=== PATIENT | female | born 1990 | race Caucasian/White ===

== ENCOUNTER 2024-11-03 10:54 | Emergency (ER) | payer OTHER, SELFPAY ==
[2024-11-03 11:11] VITALS: BP 162/103
[2024-11-03 11:31] LABS: % Basophils 0.8 % (0-2); % Eosinophils 2.8 % (0-6); % Immature Granulocytes 0.4 % (0-0.5); % Monocytes 7.9 % (1.7-9.3); % Neutrophils 68.1 % (42.2-75.2); Absolute Basophils 0.1 10^3/uL (0-0.2); Absolute Eosinophils 0.3 10^3/uL (0-0.7); Absolute Lymphocytes 1.8 10^3/uL (1.2-3.4); Absolute Monocytes 0.7 10^3/uL (0.1-0.6); Absolute Neutrophils 6.2 10^3/uL (1.4-6.5); Hematocrit 42.4 % (37.0-47.0); Hemoglobin 15.1 g/dL (12.0-16.0); Mean Corp Hgb Conc. 35.6 g/dL (33.0-37.0); Mean Corpuscular Hgb 30.8 pg (27.0-31.0); Mean Corpuscular Volume 86.5 fL (81.0-99.0); Mean Platelet Volume 11.1 fL (7.4-10.4); Nucleated Red Blood Cells % 0 %; Platelet Count 208 10^3/uL (130-400); Red Cell Dist. Width 13.4 % (11.5-14.5)
[2024-11-03 11:44] LABS: AST (SGOT) 352 U/L (14-36); Albumin 4.9 g/dl (3.5-5.0); Alkaline Phosphatase 90 U/L (38-126); Blood Urea Nitrogen 13 mg/dl (7-17); Calcium 9.8 mg/dl (8.4-10.2); Carbon Dioxide 27 mmol/L (22-30); Chloride 99 mmol/L (98-107); Glucose 147 mg/dl (70-99); Potassium 4.1 mmol/L (3.5-5.1); Sodium 138 mmol/L (135-145); Total Bilirubin 1.1 mg/dl (0.2-1.3); Total Protein 7.8 g/dl (6.3-8.2); eGFR > 60.00
[2024-11-03 11:48] LABS: HCG, Serum Qualitative Screen Negative
[2024-11-03 11:56] LABS: ALT (SGPT) 398 U/L (0-35)
--- NOTE | 2024-11-03 12:43 | EDRN ---
Pt states she arrives for pain on LLQ that started on Sunday. Initially pt though she was constipated and had diarrhea all day. Pt awoke this am still in pain so came ER. Pain fluctuates, increasing and decreasing, pain now a 2/10. This am 5-03/24
and yesterday 7-05/24. No nausea, no urinary symptoms. Pt has increased pain w/ coughing or deep breath.
[2024-11-03 12:46] VITALS: BMI 46.6
[2024-11-03 12:51] VITALS: BP 156/101
[2024-11-03 13:00] VITALS: BP 156/91
--- NOTE | 2024-11-03 13:15 | ED.GENMED ---
Addendum entered and electronically signed by Elin Colon PA-C 11/05/24 07:18:
34-year-old female seen here on 1�22 for an obstructing left ureteral stone initially urine looks contaminated but her culture grew out E. coli. I spoke with the patient this morning she says she was in a lot of pain last night. She is having no
fever but I instructed her to come into the emergency department which she was planning on doing anyway. Patient may need to have procedure to remove the stone due to this infection she was told not to eat or drink.
Original Note:
History of Present Illness
General
Chief Complaint: Abdominal Symptoms
Source: patient
Time Seen by Provider: 11/03/24 13:00
History of Present Illness
History of Present Illness:
34-year-old female presents complaining of 2 to 3 days worth of intermittent left mid abdominal pain. She did have some loose stool yesterday but she recently increased her dose of metformin. There has been no nausea or vomiting. No fever no
urinary symptoms. She denies any blood in the stool. No prior abdominal surgical history. She does have a history of elevated liver functions and her blood work which she has had an ultrasound for. The pain does seem to come and go. Currently
at the time my exam is mild in nature. Occasionally radiates to the flank. Last menstrual cycle last week.
Phy Exam
Physical Exam
Physical Exam:
General: Well-appearing female no acute respiratory distress
HEENT: Normocephalic atraumatic
Heart: Regular rate and rhythm no murmurs
Lungs: Clear no wheeze or rale
Abdomen is soft tender to the left mid abdomen no guarding or rebound normal bowel sounds nondistended no right upper quadrant tenderness no Arauz sign
Extremities: No cyanosis or edema
Skin: Warm no rash
Course
Orders/Labs/Results
Orders:
Orders
11/03/24 11:14
Test Result ONCE
11/03/24 11:17
Complete Blood Count/With Diff Urgent
Comprehensive Metabolic Panel Urgent
HCG, Serum Qualitative Screen Urgent
11/03/24 13:15
CT Abd/pelvis W Iv Cont Urgent
Comment:
Reason For Exam: left mid abdominal pain
11/03/24 13:53
Urinalysis Reflex To Culture Urgent
Date Specimen was Collected: 11/03/24
Time Specimen was Collected: 13:52
Urine Microscopic Reflex Cult Urgent
Urine Culture Urgent
JEAN CARLOS Source: U
Specimen Description:
Obtained by: Random
Date Specimen was Collected: 11/03/24
Time Specimen was Collected: 13:52
Abnormal Lab Results
11/03/24 11/03/24
11:17 13:53
MPV 11.1 H fL
(7.4-10.4)
Absolute Monos (auto) 0.7 H 10^3/uL
(0.1-0.6)
Lymphocytes % 20.0 L %
(20.5-51.1)
Glucose 147 H mg/dl
(70-99)
AST 352 H U/L
(14-36)
ALT 398 H U/L
(0-35)
Ur Occult Blood Reflex 1+ A
(Negative)
Leukocyte Esterase Rfl 1+ A
(Negative)
Urine RBC 7-10 A /HPF
(0-2)
Urine WBC (Reflex) 16-20 A /HPF
(0-5)
Urine Bacteria (Reflex) Many A
(Negative)
11/03/24 11:17
11/03/24 11:17
Vital Signs
Initial and Last Documented VS:
Initial Vital Signs
Temp Pulse Resp BP Pulse Ox
97.9 F 98 16 162/103 97
11/03/24 11:11 11/03/24 11:11 11/03/24 11:11 11/03/24 11:11 11/03/24 11:11
Last Documented Vital Signs
Temp Pulse Resp BP Pulse Ox
97.9 F 92 16 120/70 95
11/03/24 11:11 11/03/24 15:01 11/03/24 15:01 11/03/24 15:01 11/03/24 15:01
MDM/Problems Addressed
Differential Diagnosis Includes:
Left mid abdominal pain. Differential includes but not limited to diverticulitis versus renal colic the patient versus musculoskeletal discomfort. Pain seems to be higher than I would expect for ovarian related pathology. Last menstrual cycle 1
week ago
Check urine for UTI or hematuria. CT abdomen with IV contrast pending.
Of note patient's LFTs are elevated in the blood work. Clinically she has no tenderness to the right upper quadrant. She has had an ultrasound of her abdomen which demonstrated beginnings of fatty liver.
*Critical Care Note
Total Time (30-74mins, 75-104mins- exclusive of procedures): Not Applicable
Update Note
Update Note:
CT demonstrates 5 mm transverse by 8 mm longitudinal ureteral stone in the proximal left ureter. Urinalysis likely contaminated specimen. Patient reevaluated multiple times appears comfortable no vomiting no fever white count normal. Discussed
findings with urologist. We agreed on close follow-up and potential elect procedure in the near future. Return precautions were given.
ED Attending Note
-
Portions of this chart may have been created with voice recognition software.� Occasional wrong word or��sound alike� substitutions may have occurred due to the inherent limitations of voice recognition software.
Discharge Plan
Departure
Patient Disposition: Home (Routine Discharge)
Date of Disposition: 11/03/24
Time of Disposition: 15:58
Patient with high blood pressure during this ER visit?: No
Discharge Problem:
Kidney stone
Instructions: Kidney stones in adults - ED discharge instructions
Prescriptions:
New
tamsulosin [Flomax] 0.4 mg capsule
0.4 mg PO DAILY Qty: 10 0RF
ondansetron 4 mg tablet,disintegrating
4 mg PO Q8H PRN (Reason: nausea and vomiting) Qty: 10 0RF
Referrals:
Thomas Rendon MD [Family Provider] -
Emanuel Trujillo MD [Active] -
Activity Restrictions/Additional Instructions:
Drink plenty of fluids. Please return here for increasing pain vomiting fever or other concerning finding. Otherwise follow-up with urologist for next available appointment to discuss further treatment options
Interventions
Interventions:
*Risk Screen - Suicide Last Done: 11/03/24 11:13
*General Assessment Last Done: 11/03/24 12:47
*Neglect/Abuse Screening Last Done: 11/03/24 11:13
ED- Fall Risk Assessment Last Done: 11/03/24 12:48
*ED COVID-19 Vaccine History Last Done: 11/03/24 12:47
XP-Vrxjxc-Ekauakjaxe Assessment Last Done: 11/03/24 12:51
Discharge Date and Time
Print Language: DANISH
[2024-11-03 14:00] VITALS: BP 152/92
[2024-11-03 14:03] LABS: Urine Albumin Trace (Neg - Trace); Urine Bilirubin Negative (Negative); Urine Character Clear (Clear); Urine Color Yellow; Urine Glucose Negative (Negative); Urine Ketone Negative (Negative); Urine Leukocyte 1+ (Negative); Urine Nitrite Negative (Negative); Urine Occult Blood 1+ (Negative); Urine Urobilinogen Negative (Neg - 1+)
[2024-11-03 14:11] LABS: Urine Bacteria Many (Negative); Urine Squamous Cell 26-30 /LPF (Few); Urine White Cell 16-20 /HPF (0-5)
[2024-11-03 15:01] VITALS: BP 120/70
[2024-11-03 16:15] VITALS: BP 146/103
== END 2024-11-03 16:20 | disposition home or self-care (01) ==
LOC: EMR 10:54
PROVIDERS: Physician Assistant; Student in an Organized Health Care Education/Training Program; EMERGENCY PHYSICIAN Emergency Medicine; FAMILY PHYSICIAN Family Medicine
DX: N20.2 Calculus of kidney with calculus of ureter (principal)
CPT/HCPCS: 99284; 74177; 80053; 81003; 81015; 84703; 85025; 87077; 87086; 87186; Q9967

== ENCOUNTER 2024-11-05 13:13 | Inpatient (IN) | payer OTHER, SELFPAY ==
[2024-11-05] VITALS (11 sets, daily range): BP systolic 134–183; BP diastolic 72–111
--- NOTE | 2024-11-05 10:36 | ED.GENMED ---
History of Present Illness
General
Chief Complaint: Urinary Symptoms
Source: patient
Exam Limitations: none
Time Seen by Provider: 11/05/24 10:26
History of Present Illness
History of Present Illness:
34-year-old female presents for reevaluation. She was here several days ago diagnosed with a 5 x 8 mm proximal left-sided ureteral stone. Urine culture grew back E. coli. She received a call from us today to return here. She also notes increased
pain as of yesterday. No vomiting. She does note slight nausea. At the current moment her pain has subsided somewhat.
Phy Exam
Physical Exam
Physical Exam:
General: Well-appearing female no acute respiratory distress
HEENT: Normocephalic atraumatic
Heart: Regular rate and rhythm
Lungs: Clear no wheeze
Abdomen dorsalis soft slightly tender to the left mid abdomen no guarding or rebound normal bowel sounds nondistended
Extremities: No cyanosis
Course
Orders/Labs/Results
Orders:
Orders
11/05/24 10:36
0.9% Sodium Chloride 1000 ml [Nss] 1,000 ml IV BOLUS
CefTRIAXone [Rocephin] 1,000 mg IV NOW STA
11/05/24 10:46
Complete Blood Count/With Diff Urgent
Blood Culture Urgent
JEAN CARLOS Source: Blood/Venous
Specimen Description:
11/05/24 11:07
Comprehensive Metabolic Panel Urgent
Abnormal Lab Results
11/05/24
10:46
MPV 11.3 H fL
(7.4-10.4)
Absolute Monos (auto) 0.8 H 10^3/uL
(0.1-0.6)
Lymphocytes % 20.2 L %
(20.5-51.1)
Monocytes % 10.3 H %
(1.7-9.3)
11/05/24 10:46
Vital Signs
Initial and Last Documented VS:
Initial Vital Signs
Temp Pulse Resp BP Pulse Ox
97.7 F 81 18 176/105 96
11/05/24 09:49 11/05/24 09:49 11/05/24 09:49 11/05/24 09:49 11/05/24 09:49
Last Documented Vital Signs
Temp Pulse Resp BP Pulse Ox
97.7 F 81 18 176/105 96
11/05/24 09:49 11/05/24 09:49 11/05/24 09:49 11/05/24 09:49 11/05/24 09:49
MDM/Problems Addressed
Differential Diagnosis Includes:
Patient with positive urine culture showing E. coli. Known 5 x 8 mm stone in left ureter. Increased pain yesterday. Without a fever with stable vital signs. Discussed with urology. Will start fluids and Rocephin. Labs and blood cultures pending
*Critical Care Note
Total Time (30-74mins, 75-104mins- exclusive of procedures): Not Applicable
Update Note
Update Note:
Discussed all findings with urology. Urology plans on taking patient to the OR today for stent placement. I ordered labs fluids and Rocephin. Patient made aware. Admitted to hospitalist service
ED Attending Note
-
Portions of this chart may have been created with voice recognition software.� Occasional wrong word or��sound alike� substitutions may have occurred due to the inherent limitations of voice recognition software.
Discharge Plan
Departure
Patient Disposition: Admit
Date of Disposition: 11/05/24
Time of Disposition: 12:09
Admit to: Telemetry
Presentation/result/management discussed w/ accepting MD/DO: Hospitalist
Discharge Problem:
Calculus, ureteral, UTI (urinary tract infection)
Prescriptions:
No Action
tamsulosin [Flomax] 0.4 mg capsule
0.4 mg PO DAILY Qty: 10 0RF
ondansetron 4 mg tablet,disintegrating
4 mg PO Q8H PRN (Reason: nausea and vomiting) Qty: 10 0RF
Referrals:
Thomas Rendon MD [Family Provider] -
Interventions
Interventions:
*Risk Screen - Suicide Last Done: 11/05/24 09:49
*General Assessment Last Done: 11/05/24 11:30
*Neglect/Abuse Screening Last Done: 11/05/24 10:30
*ED COVID-19 Vaccine History Last Done: 11/05/24 11:30
Discharge Date and Time
Print Language: YI
[2024-11-05] MEDS: ROCEPHIN 1000 MG IV (10:57)
[2024-11-05] MEDS: NSS 1000 IV (10:58)
[2024-11-05 11:00] LABS: % Basophils 0.6 % (0-2); % Eosinophils 3.7 % (0-6); % Immature Granulocytes 0.4 % (0-0.5); % Lymphocytes 20.2 % (20.5-51.1); % Monocytes 10.3 % (1.7-9.3); % Neutrophils 64.8 % (42.2-75.2); Absolute Eosinophils 0.3 10^3/uL (0-0.7); Absolute Lymphocytes 1.5 10^3/uL (1.2-3.4); Absolute Monocytes 0.8 10^3/uL (0.1-0.6); Absolute Neutrophils 4.7 10^3/uL (1.4-6.5); Hematocrit 41.3 % (37.0-47.0); Hemoglobin 14.4 g/dL (12.0-16.0); Mean Corp Hgb Conc. 34.9 g/dL (33.0-37.0); Mean Corpuscular Hgb 30.4 pg (27.0-31.0); Mean Corpuscular Volume 87.1 fL (81.0-99.0); Mean Platelet Volume 11.3 fL (7.4-10.4); Nucleated Red Blood Cells % 0 %; Platelet Count 202 10^3/uL (130-400); Red Blood Cell Count 4.74 10^6/uL (4.20-5.40); Red Cell Dist. Width 13.1 % (11.5-14.5); White Blood Cell Count 7.3 10^3/uL (4.8-10.8)
--- NOTE | 2024-11-05 11:04 | CONS.URO ---
Consultation
-
Date/Time Consultation Requested: 11/05/24
Date/Time Consultation Performed: 11/05/24
Requesting Provider: ED
Performing Provider: Ronnie
Reason for Consultation: E. Coli UTI + left UPJ stone
Medical History
History of Present Illness
34F presenting for 2nd ED visit in 72 hrs.
Initially seen 11/03 - afebrile, HDS, WBC/Cr WNL, however UA suspicious for UTI.
UCx finalized today => E. Coli.
ED called patient to return for evaluation/admission.
Scheduled for outpatient Urology follow-up in office today (11/05), however she was advised to return to ED given +UCx results.
Denies F/C.
Denies vomiting.
+Nausea.
Notes worsening left flank and abdominal pain over last 48-72 hrs.
Past Medical History
Past Medical History: None
Past Surgical History: None
Social History
Tobacco: Non-smoker
Alcohol: Occasional
Drug: None
Employment: Employed
Family History
Family History: Reviewed & Not Pertinent
Allergies/Home Medications
Allergies
Allergy/AdvReac Type Severity Reaction Status Date / Time
No Known Allergies Allergy Unverified 11/05/24 09:51
Home Medications
�Medication �Instructions �Recorded �Confirmed �Type
ondansetron 4 mg disintegrating 4 mg PO Q8H PRN nausea and 11/03/24 Rx
tablet vomiting #10 tabs
tamsulosin 0.4 mg capsule (Flomax) 0.4 mg PO DAILY #10 caps 11/03/24 Rx
Review of Systems
-
History Source: Patient
A 12 point Review of Systems was completed except as noted: Yes
Physical Exam
Vital Signs
Vital Signs
Temp Pulse Resp BP Pulse Ox
97.7 F 81 18 176/105 96
11/05/24 09:49 11/05/24 09:49 11/05/24 09:49 11/05/24 09:49 11/05/24 09:49
Lab / Testing Results
Laboratory Results
11/05/24 10:46
Physical Exam
General: Well Developed and Well Nourished
HEENT: Normocephalic
Respiratory: Non Labored Respirations
Cardiac: Regular Rhythm
Breast: Deferred by me
GI: Soft, Non Tender and Non Distended
Rectal: Deferred by Provider
Genito-urinary: Clear Urine
Musculoskeletal: No Edema
Skin: Warm and Dry
Neuro: AO x 3, No Motor Deficits and Nonfocal/Grossly Intact
Psych: Calm and Intact Judgement
Assessment / Plan
-
E. Coli cUTI
Partially obstructing left UPJ stone
WBC WNL
Cr WNL
UCx (11/03) => E. Coli
Afebrile/non-toxic
HDS
11/03: CTAP w/o IV contrast => mildly obstructing calculus at the left ureteropelvic junction measuring 5 x 8 mm.
- IV Ceftriaxone started in ED, admit to Hospitalist given concurrent cUTI
- Maintain NPO (last ate in PM 11/04)
- To OR today for cystoscopy + left stent placement
D/w ED.
D/w patient.
Data Reviewed
-
Total Time Spent with Patient (in minutes): 35
CT Scan: Image personally visualized and interpreted, Report Reviewed by Me, Discussed with Physician and Discussed with Patient
Lab Data: Labs Reviewed, Discussed with Physician and Discussed with Patient
Old Records: Reviewed
--- NOTE | 2024-11-05 12:42 | HPS.HSE ---
Family Physician
-
Family Physician: Thomas Rendon
Chief Complaint
-
Infected kidney stone
History of Present Illness
34-year-old woman has an infected kidney stone with e-coli. She was here several days ago and was diagnosed with a 5 x 8 mm proximal left-sided ureteral stone. The Urine culture grew back E. coli. She received a call from ER today to return. She
also notes increased pain as of yesterday. No vomiting. She does note slight nausea. At the current moment her pain has subsided. At the time of my exam, she was comfortable. She is going to the OR today. Sensitivities are as follows:
1. Escherichia coli
M.I.C. RX
--------- ---
Amoxicillin/Potas. Clavulanate <=8/4 S
Ampicillin <=8 S
Ampicillin/Sulbactam <=4/2 S
Aztreonam <=4 S
Cefazolin <=2 S
Ertapenem <=0.5 S
Ciprofloxacin <=0.25 S
Gentamicin <=2 S
Meropenem <=1 S
Nitrofurantoin-Urine Only <=32 S
Piperacillin/Tazobactam <=8 S
Tetracycline <=4 S
Tobramycin <=2 S
Trimethoprim/Sulfamethoxazole <=2/[address] from prior visit shows the following:
Mildly obstructing calculus at the left ureteropelvic junction measuring 0.5 cm in transverse dimension and 0.8 cm in length.
Mild hepatosplenomegaly with findings compatible with diffuse fatty liver.
Medical History
Past Medical History
Past Medical History: Reports Other
Additional Past Medical History:
NIDDM
Obesity
Essential HTN
Probable fatty liver (based on CT)
Enlarged spleen
Past Surgical History: Reports None
Social History
Tobacco: Non-smoker
Alcohol: Occasional
Drug: None
Family History
Family History: Not pertinent
Allergies / Home Medications
Allergies reflects when Allergies were last updated in [facility].
Home Medications with original date entered in [facility]
Allergy/Medication List:
Allergies
Allergy/AdvReac Type Severity Reaction Status Date / Time
No Known Allergies Allergy Unverified 11/05/24 09:51
Home Medications
cholecalciferol (vitamin D3) 25 mcg (1,000 unit) tablet (Vitamin D3) 25 mcg PO DAILY 11/05/24
coQ10 (ubiquinol) 100 mg capsule 100 mg PO DAILY 11/05/24
metformin 500 mg tablet 500 mg PO TID 11/05/24
nifedipine 30 mg tablet,extended release 30 mg PO DAILY 11/05/24
ondansetron 4 mg disintegrating tablet 4 mg PO Q8HPRN PRN nausea and vomiting 11/05/24
vit no.133-ferrous fumarate 28 mg-folic acid 800 mcg tablet () 1 tab PO DAILY 11/05/24
tamsulosin 0.4 mg capsule (Flomax) 0.4 mg PO DAILY uti 11/05/24
Review of Systems
-
History Source: Patient
A 12 point ROS was completed and negative except as noted: Yes
Physical Exam
Vital Signs
Vital Signs
Temp Pulse Resp BP Pulse Ox
97.7 F 81 18 176/105 96
11/05/24 09:49 11/05/24 09:49 11/05/24 09:49 11/05/24 09:49 11/05/24 09:49
Physical Exam
General: Well Developed, Well Nourished, No Apparent Distress, Comfortable, Conversant and Obese
HEENT: NormoCephalic, Moist mucous membranes, Atraumatic, Good Dentition, Nose Appears Normal and Ears Appear Normal
Respiratory: Clear
Cardiac: S1/S2 and Regular Rhythm
GI: Soft, Non Tender and Non Distended
Musculoskeletal: No Clubbing, No Cyanosis and No Edema
Skin: Warm and Dry
Neuro: Awake, Alert and Oriented
Psych: Calm
Laboratory Results
-
11/05/24 10:46
Laboratory Results
Total Bilirubin Cancelled 11/05/24 10:46
AST Cancelled 11/05/24 10:46
ALT Cancelled 11/05/24 10:46
Alkaline Phosphatase Cancelled 11/05/24 10:46
Data Reviewed
-
Lab Data: Labs Reviewed by me
Impression/Plan
-
IMPRESSION:
34 woman with infected kidney stone. Elevated LFTs and CT evidence of hepatosplenomegaly c/w fatty liver.
PLAN:
1. Infected stone. Sensitive to all tested antibiotics
Abx selection per Urology, but most will work.
observe overnight after surgery
Full po diet after surgery
2. Elevated LFTs and CT evidence of fatty liver.
Weight loss very important to avoid future liver failure
Outpatient follow up to r/o other causes of hepatitis
full code
VCD for DVTp
[2024-11-05 12:46] LABS: ALT (SGPT) 289 U/L (0-35); AST (SGOT) 175 U/L (14-36); Albumin 4.4 g/dl (3.5-5.0); Alkaline Phosphatase 81 U/L (38-126); Blood Urea Nitrogen 11 mg/dl (7-17); Calcium 9.5 mg/dl (8.4-10.2); Carbon Dioxide 25 mmol/L (22-30); Chloride 100 mmol/L (98-107); Glucose 135 mg/dl (70-99); Potassium 4.1 mmol/L (3.5-5.1); Sodium 137 mmol/L (135-145); eGFR > 60.00
--- NOTE | 2024-11-05 14:34 | W.SUR.PREOP ---
Pre-Operative Surgical Note
-
I have examined this patient prior to the performance of the scheduled procedure.
The patient's condition is unchanged from the time of the current History and
Physical and the patient is able to undergo the scheduled procedure.
Reviewed risks, benefits, alternatives, and potential complications of cystoscopy + stent insertion including but not limited to urosepsis, bleeding, ureteral/bladder injury, need for additional procedures/surgeries.
--- NOTE | 2024-11-05 15:09 | W.IMMPOSTOP ---
Surgical Immed Post Op Note
-
Primary Surgeon: Joshua
Pre-op Diagnosis: Left Ureteral Stone causing Obstruction; E. Coli UTI, possibly evolving to sepsis
Post-op Diagnosis: same
Procedure Performed: cystoscopy, stone dislodgement and stenting
Anesthesia Type: LMA
Specimen / Cultures: none
Estimated Blood Loss: none
Complications: none
Operative Findings: 8 mm mid left ureteral stone
[2024-11-05] MEDS: CIPRO 500 MG PO (17:14)
[2024-11-05] MEDS: Pyridium 200 MG PO (19:39)
[2024-11-05] MEDS: PROCARDIA XL (EXTENDED RELEASE) 30 MG PO (22:01)
[2024-11-06 00:45] VITALS: BP 172/101
[2024-11-06] MEDS: TORADOL 10 MG IV ×2 (00:48→07:59)
[2024-11-06 01:50] VITALS: BP 135/80
--- NOTE | 2024-11-06 02:11 | PTCARENOTE ---
Pt.'s BP's elevated this shift, 174/97 (1929) & 178/105 (2199). Pt. takes nifedipine at HS, not ordered. Hospitalist CHAPIS Dyer notified, order obtained and dose given. Pt. also complaining of dysuria and frequency. Pyridium given at beginning of
shift with relief of dysuria, but pt. still complaining of vague discomfort/ pelvic irritation. Toradol given with excellent results, pt. states she is much more comfortable. Voiding orange urine in hat, straining urine, no stone seen. BP much
improved, 135/80 at 0150.
[2024-11-06 04:17] VITALS: BP 134/79
[2024-11-06 07:05] VITALS: BP 156/102
[2024-11-06 07:25] LABS: Hematocrit 42.5 % (37.0-47.0); Hemoglobin 14.5 g/dL (12.0-16.0); Mean Corp Hgb Conc. 34.1 g/dL (33.0-37.0); Mean Corpuscular Hgb 30.1 pg (27.0-31.0); Mean Corpuscular Volume 88.4 fL (81.0-99.0); Mean Platelet Volume 11.2 fL (7.4-10.4); Platelet Count 212 10^3/uL (130-400); Red Blood Cell Count 4.81 10^6/uL (4.20-5.40); White Blood Cell Count 9.9 10^3/uL (4.8-10.8)
[2024-11-06 07:41] LABS: ALT (SGPT) 262 U/L (0-35); AST (SGOT) 109 U/L (14-36); Albumin 4.5 g/dl (3.5-5.0); Alkaline Phosphatase 82 U/L (38-126); Blood Urea Nitrogen 12 mg/dl (7-17); Calcium 9.4 mg/dl (8.4-10.2); Carbon Dioxide 24 mmol/L (22-30); Chloride 101 mmol/L (98-107); Glucose 160 mg/dl (70-99); Potassium 4.4 mmol/L (3.5-5.1); Sodium 137 mmol/L (135-145); Total Bilirubin 0.6 mg/dl (0.2-1.3); Total Protein 7.1 g/dl (6.3-8.2); eGFR > 60.00
[2024-11-06] MEDS: Pyridium 200 MG PO (07:59)
[2024-11-06] MEDS: CIPRO 500 MG PO (07:59)
--- NOTE | 2024-11-06 09:09 | W.PN.URO.CBU ---
Today's Communication / Plan
-
urologically fit for discharge
Assessment / Plan
-
urologically stable
Diagnosis
-
Date of Service: November 06, 2024
-
Patient Diagnosis: Left ureteral stone; E. coli UTI; s/p urgent left ureteral stenting
Post Op Day: 1
Subjective
-
irritative bladder sx
Objective
-
Vital Signs
Temp Pulse Resp BP Pulse Ox
98.0 F 77 18 156/102 96
11/06/24 07:05 11/06/24 07:05 11/06/24 07:05 11/06/24 07:05 11/06/24 07:05
Intake and Output
11/05/24 11/06/24 11/07/24
06:59 06:59 06:59
Intake Total 480 / 480
Output Total 650 / 650
Balance -170 / -170
Intake:
Oral fluids 480 / 480
Output:
Urine, Voided 650 / 650
Laboratory Results
11/06/24 06:51
11/06/24 06:51
Physical Exam
-
General - well developed, well nourished, no acute distress
[2024-11-06] MEDS: DETROL LA 4 MG PO (10:06)
[2024-11-06 11:05] VITALS: BP 174/99
--- NOTE | 2024-11-06 11:57 | W.PN.HOSP.TC ---
Today's Communication/Plan
-
d/c
Assessment / Plan
Assessment / Plan
Gen: NAD, AAOx3.
Eyes: EOMI, PERRLA, no scleral icterus.
Neck: supple.
CV: RRR, +S1/S2, no m/r/g.
Resp: CTAB, no rales, wheezes, or rhonchi.
Abd: +BS, soft, NT, ND
Skin: No rashes.
Neuro: CN 2-12 intact, non-focal.
Psych: Normal mood and affect.
Infected left ureterolithiasis:
-CT A/P 11/03/24: Mildly obstructing calculus at the left ureteropelvic junction measuring 0.5 cm in transverse dimension and 0.8 cm in length. Mild hepatosplenomegaly with findings compatible with diffuse fatty liver.
-s/p cystoscopy, stone dislodgement and stenting on 11/05/24
-afebrile, no leukocytosis, hemodynamically stable
-UCx 11/03/24 with pansensitive E coli
-cont Cipro to complete 14 days
Other problems:
Fatty liver: Encourage weight
Morbid obesity due due to excess calories: Encourage weight loss, affects all aspects of care. States she is on Metformin for 'wt loss.'
Essential HTN: cont Procardia XL. Discussed with patient that she should have a blood pressure check in 4 to 5 days at which time she may need up titration of her antihypertensive medication(s).
FULL/SCDs
Total time spent on d/c = 32 min. This included today's physical exam, progress note, review of laboratory and diagnostic data, preparation of discharge documents and prescriptions, and discussions about the pt's hospital course and discharge plan
with the patient and other medical asst involved in the patient's care.
Anticipated Discharge: Today
Subjective/Interval History
-
Date of Service: November 06, 2024
No new/acute complaints.
Objective Data
-
Labs:
Laboratory Results
11/06/24
06:51
WBC 9.9
Hgb 14.5
Hct 42.5
Plt Count 212
Sodium 137
Potassium 4.4
Chloride 101
Carbon Dioxide 24
BUN 12
Creatinine 0.6
Glucose 160 H
Calcium 9.4
Total Bilirubin 0.6
AST 109 H
ALT 262 H
Alkaline Phosphatase 82
Vital Signs:
Vital Signs
Temp Pulse Resp BP Pulse Ox
98.2 F 85 18 174/99 96
11/06/24 11:05 11/06/24 11:05 11/06/24 11:05 11/06/24 11:05 11/06/24 11:05
I&O
11/05/24 11/06/24 11/07/24
06:59 06:59 06:59
Intake Total 480 / 480
Output Total 650 / 650
Balance -170 / -170
[2024-11-06 12:05] VITALS: BP 162/104
[2024-11-06 12:12] VITALS: BMI 46.0
[2024-11-06 14:23] LABS: Glycohemoglobin (HgbA1c) 6.1 % (4.0-5.6)
--- NOTE | 2024-11-06 15:28 | W.DCSUMMARY ---
Discharge Summary
Discharge Data
Date of Admission: 11/05/24
Date of Discharge: 11/06/24
-
Pending Results: No
Hospital Course
Primary diagnoses:
Infected left ureterolithiasis s/p cystoscopy, stone dislodgement and stenting on 11/05/24
Secondary diagnoses:
Fatty liver
Morbid obesity due due to excess calories
Essential hypertension
Consultants:
Urology
Imaging:
CT A/P 11/03/24: Mildly obstructing calculus at the left ureteropelvic junction measuring 0.5 cm in transverse dimension and 0.8 cm in length. Mild hepatosplenomegaly with findings compatible with diffuse fatty liver.
Hospital course: 34-year-old female who presented with a prior diagnosis of left-sided ureterolithiasis and a urine culture positive for E. coli. She was called to return to the ER. She was seen by urology and underwent cystoscopy, stone
dislodgement and stenting on 11/05/24. She was afebrile, without leukocytosis, and hemodynamically stable while hospitalized. UCx from 11/03/24 had grown pansensitive E coli. She received Rocephin and ciprofloxacin while hospitalized. She was
discharged on ciprofloxacin to complete 14 days.
Discharge Plan
-
Patient Disposition: Home (Routine Discharge)
Discharge Diagnosis/Procedures: Infected Left Ureteral Calculus, s/p cystoscopy, stone dislodgement and stenting on 11/05/24
Condition: Good
Diet: No restrictions
Activity: No restrictions
Driving Restrictions: As prior to admission
Bathing Restrictions: None
Referrals:
Alec Lewis MD [Active] - (call to schedule 'Left Ureteroscopy and Stone Removal' on 11/14/2024)
Thomas Rendon MD [Family Provider] - in 4 days
Prescriptions:
New
tolterodine 4 mg capsule,extended release 24hr
4 mg PO Q24H Qty: 14 0RF
Uribel Tabs 81.6-0.12-10.8 mg tablet
1 tab PO QID Qty: 20 1RF
ciprofloxacin HCl 500 mg Tablet
500 mg PO BID Qty: 28 0RF
Continued
metformin 500 mg Tablet
500 mg PO TID
Rx Instructions:
dose increased on 10/31/24
nifedipine 30 mg Tablet Extended Release
30 mg PO HS
cholecalciferol (vitamin D3) [Vitamin D3] 25 mcg (1,000 unit) Tablet
25 mcg PO DAILY
coQ10 (ubiquinol) 100 mg Capsule
100 mg PO DAILY
28-800 mg-mcg Tablet
1 tab PO DAILY
tamsulosin [Flomax] 0.4 mg capsule
0.4 mg PO DAILY
ondansetron 4 mg tablet,disintegrating
4 mg PO Q8HPRN PRN (Reason: nausea and vomiting)
Discharge Orders:
Discharge Patient (As Directed); Ordered 11/06/24
Ordered By: Juliano Aden
Discharge Date and Time
Discharge Date/Time: 11/06/24 13:57
Print Language: GREENLAND[place]
--- NOTE | 2024-11-07 14:54 | PN.CDI ---
CDI
- -
CDI:
Physician Documentation Request
Admit Date: 11/05/24 13:13
Dear Doctor Joshua
The diagnosis of evolving sepsis was documented on 11/05 in OR report.
There is either a lack of clinical support for this condition in the current medical record, or there is a lack of recognized standard criteria to support the condition
Please clarify the following:
____ - Evolving sepsis is/was present and is a clinical diagnosis based on (please include this additional
support in the medical record)
____ - Sepsis was ruled out
____ - Other
�Sepsis
-Systemic manifestations of infection, with 2 or more SIRS criteria which include:
-Fever > 100.4��F or hypothermia < 96.8��F
-Leukocytosis WBC > 12,000 or leukopenia, WBC < 4,000, or > 10% bands
-Tachycardia- > 90 beats/minute
-Tachypnea- RR > 20 breaths/minute or PaCO2 < 32mmHg
Source: Merck Manual 2013
Use of terms such as suspected, likely, concern for, or probable (associated with a specific diagnosis that is being evaluated, monitored, or treated as if it exists) are acceptable and can be coded in the inpatient setting, when documented at the
time of discharge.
Thank you,
Anjelica Masterson RN, BSN
CDI Specialist
tiger text
Please use your independent medical judgment in providing your response.
--- NOTE | 2024-11-11 09:56 | W.PN.UPDATE ---
Update Note
Progress Note Update
Sepsis ultimately did NOT manifest.
== END 2024-11-06 13:57 | disposition home or self-care (01) | DRG 660 ==
LOC: 3 WEST ACU 13:13
PROVIDERS: Physician Assistant; Specialist; ADMITTING PHYSICIAN Internal Medicine; ATTENDING PHYSICIAN Internal Medicine; EMERGENCY PHYSICIAN Emergency Medicine; FAMILY PHYSICIAN Family Medicine; OTHER PHYSICIAN Surgery
PROC: 0T778DZ Dilation of Left Ureter with Intraluminal Device, Via Natural or Artificial Opening Endoscopic (ICD-10-PCS; 2024-11-05)
DX: N20.2 Calculus of kidney with calculus of ureter (principal); N39.0 Urinary tract infection, site not specified; Z68.42 Body mass index [BMI] 45.0-49.9, adult; K76.0 Fatty (change of) liver, not elsewhere classified; E11.9 Type 2 diabetes mellitus without complications; B96.20 Unspecified Escherichia coli [E. coli] as the cause of diseases classified elsewhere; I10 Essential (primary) hypertension; E66.01 Morbid (severe) obesity due to excess calories; Z79.84 Long term (current) use of oral hypoglycemic drugs
CPT/HCPCS: 74018; 76000; 80053; 83036; 85025; 85027; 87040; 96361; 96374; 99284; C2617

== ENCOUNTER 2024-11-14 06:03 | Day surgery (SDC) | payer OTHER, SELFPAY ==
[2024-11-14 06:10] VITALS: BMI 46.2
[2024-11-14 06:28] VITALS: BMI 46.2
[2024-11-14 06:44] VITALS: BP 137/84
[2024-11-14] MEDS: NORMOSOL-R/PLASMALYTE-A 1000 IV (06:49)
[2024-11-14 07:50] VITALS: BP 126/85; BP 137/84
[2024-11-14 07:51] VITALS: BP 126/85
[2024-11-14] MEDS: Pyridium 200 MG PO (08:08)
[2024-11-14 08:23] VITALS: BP 115/77
[2024-11-14 08:40] VITALS: BP 123/76
[2024-11-14 08:50] VITALS: BP 123/76
== END 2024-11-14 09:05 | disposition home or self-care (01) ==
LOC: SDS 06:03
PROVIDERS: ATTENDING PHYSICIAN Specialist
DX: N20.1 Calculus of ureter (principal); Z87.440 Personal history of urinary (tract) infections
CPT/HCPCS: 52356; 74018; 76000; C1894

== ENCOUNTER 2025-03-29 21:51 | Emergency (ER) | payer OTHER, SELFPAY ==
[2025-03-29 21:53] VITALS: BP 156/101
--- NOTE | 2025-03-29 23:14 | ED.MUSCINJ ---
HPI-Injury
General
Chief Complaint: Musculo-Skeletal Complaint
Time Seen by Provider: 03/29/25 22:38
History of Present Illness-Injury
Initial Injury comments:
Patient is a 34-year-old female presenting to the emergency department with elbow pain after a fall. She had a fall last night where she fell on her outstretched hand. She not hit her head or lose consciousness. She is on any blood thinners. She
woke up with elbow pain and difficulty with range of motion so she placed herself in a sling. She went about her day thinking that the pain would improve however it did not so she came to the emergency department. No numbness tingling.
Occasionally will have a lightening bolt sensation down her elbow. No pain elsewhere.
Phy Exam
Physical Exam
Physical Exam:
GENERAL: no acute distress
HEENT: atraumatic, extraocular muscles intact
NECK: no midline tenderness, normal range of motion, NEXUS criteria negative
BACK: no midline tenderness, no other obvious trauma
CHEST: no tenderness
CARDIOVASCULAR: regular rate and rhythm
EXTREMITIES: Right upper extremity sling in place with mild tenderness to palpation at the elbow, 2+ radial pulse, normal cap refill, normal strength at the wrist and shoulder otherwise moving all extremities, distal pulses intact, no other obvious
trauma
NEUROLOGIC: awake, alert x 3, no focal deficits
Injury Course
Orders/Labs/Results
Orders:
Orders
03/29/25 21:55
Elbow, Right 3 View [CR Elbow - Right Min 3 Views] Stat
Comment:
Reason For Exam: pain
Wrist, Right 3 Views [CR Wrist - Right Min 3 Views] Urgent
Comment:
Reason For Exam: pain
03/29/25 23:13
Sling Left-Treatment ONCE
MDM/Problems Addressed
Differential Diagnosis Includes:
Patient is a 34-year-old woman presenting to the emergency department with elbow pain after mechanical fall last night. Vitals are notable for being hypertensive and exam does show tenderness palpation at the elbow. Concern for fracture versus MSK
pain. No obvious deformity to suggest dislocation. X-ray per my interpretation consistent with radial head fracture. Wrist x-ray negative. Will place patient in our sling. Will discharge with orthopedic follow-up.
*Critical Care Note
Total Time (30-74mins, 75-104mins- exclusive of procedures): Not Applicable
ED Attending Note
-
Portions of this chart may have been created with voice recognition software.� Occasional wrong word or��sound alike� substitutions may have occurred due to the inherent limitations of voice recognition software.
Discharge Plan
Departure
Patient Disposition: Home (Routine Discharge)
Date of Disposition: 03/29/25
Time of Disposition: 23:17
Patient with high blood pressure during this ER visit?: Yes
Discharge Problem:
Closed fracture of radial head
Instructions: How to Use a Shoulder Sling
Prescriptions:
No Action
metformin 500 mg Tablet
500 mg PO TID
Rx Instructions:
dose increased on 10/31/24
nifedipine 30 mg Tablet Extended Release
30 mg PO HS
cholecalciferol (vitamin D3) [Vitamin D3] 25 mcg (1,000 unit) Tablet
25 mcg PO DAILY
coQ10 (ubiquinol) 100 mg Capsule
100 mg PO DAILY
28-800 mg-mcg Tablet
3 tab PO DAILY
tamsulosin [Flomax] 0.4 mg capsule
0.4 mg PO DAILY
ondansetron 4 mg tablet,disintegrating
4 mg PO Q8HPRN PRN (Reason: nausea and vomiting)
tolterodine 4 mg capsule,extended release 24hr
4 mg PO Q24H Qty: 14 0RF
Uribel Tabs 81.6-0.12-10.8 mg tablet
1 tab PO QID Qty: 20 1RF
ciprofloxacin HCl 500 mg Tablet
500 mg PO BID Qty: 28 0RF
tramadol 50 mg Tablet
50 mg PO Q6H PRN (Reason: pain)
phenazopyridine [Pyridium] 200 mg Tablet
200 mg PO TID
Referrals:
Sandip Hernandez MD [Active, Orthopedics] - Call in 1-3 days for appt
Discharge Problem: Closed fracture of radial head
UNKNOWN - PT DOES,NOT KNOW [Family Provider]
Activity Restrictions/Additional Instructions:
You were seen in the Emergency Department today for elbow pain and was found to have a fracture. Please wear the sling until you have been cleared by your primary care doctor or orthopedics.
We would like for you to follow up with your primary care physician for further evaluation. If you experience fever, worsening of your symptoms, or develop any other new or concerning symptoms, please return to the Emergency Department immediately.
Please see the attached sheet for additional information.
Interventions
Interventions:
*Risk Screen - Suicide Last Done: 03/29/25 21:53
*Neglect/Abuse Screening Last Done: 03/29/25 21:53
*ED- Fall Risk Assessment Last Done: 03/29/25 21:53
Discharge Date and Time
Print Language: DOMINICAN
== END 2025-03-29 23:42 | disposition home or self-care (01) ==
LOC: EMR 21:51
PROVIDERS: EMERGENCY PHYSICIAN Student in an Organized Health Care Education/Training Program
DX: S52.121A Displaced fracture of head of right radius, initial encounter for closed fracture (principal); W19.XXXA Unspecified fall, initial encounter; R03.0 Elevated blood-pressure reading, without diagnosis of hypertension; Z91.040 Latex allergy status
CPT/HCPCS: 99283; 29240; 73080; 73110